=== PATIENT | female | born 1985 | race Caucasian/White ===

== ENCOUNTER 2021-07-12 07:43 | Outpatient (CLI) | payer OTHER ==
[2021-07-12 09:20] LABS: SARS-CoV-2 NAA Rapid Test DETECTED (NotDetected)
== END 2021-07-12 07:44 | disposition home or self-care (01) ==
LOC: MADLAB 07:43
PROVIDERS: ATTEND Family Medicine
DX: U07.1 COVID-19 (principal)
CPT/HCPCS: U0002